=== PATIENT | female | born 1955 | race Caucasian/White ===

== ENCOUNTER 2022-09-17 12:48 | Inpatient (IN) | payer MEDICARE, OTHER ==
[2022-09-17] MEDS ORDERED: Sodium Chloride 0.9% 10 ML Syringe FLUSH PRN ×3 (13:18→17:12)
[2022-09-17] MEDS ORDERED: Sodium Chloride 0.9% 1,000 ML IV ONE (13:18)
[2022-09-17] MEDS ORDERED: Ondansetron 4 MG/2 ML SDV IVPUSH ONE (13:18)
[2022-09-17] MEDS ORDERED: Dicyclomine 10 MG Cap PO ONE (13:19)
[2022-09-17] MEDS ORDERED: Iopamidol 612 MG/ML 100 ML Bottle IVPUSH ONE (13:37)
[2022-09-17] MEDS ORDERED: cefTRIAXone 2 GM in Sodium Chloride 0.9% 100 ML IV ONE (16:54)
[2022-09-17] MEDS ORDERED: Acetaminophen 325 MG Tab PO PRN (17:12)
[2022-09-17] MEDS ORDERED: Ondansetron 4 MG Tab.DIS PO PRN (17:12)
[2022-09-17] MEDS ORDERED: Ondansetron 4 MG/2 ML SDV IV PRN (17:12)
[2022-09-17] MEDS ORDERED: Heparin Sodium 5,000 Units/ML Vial SUBCUT SCH (17:15)
[2022-09-17] MEDS: Lactated Ringers 1,000 ML IV SCH (18:53)
[2022-09-17] MEDS: Heparin Sodium 5,000 Units/ML Vial SUBCUT SCH (19:49)
[2022-09-18] MEDS: Heparin Sodium 5,000 Units/ML Vial SUBCUT SCH ×2 (03:38→12:45)
[2022-09-18] MEDS: Lactated Ringers 1,000 ML IV SCH (03:38)
== END 2022-09-18 13:18 | disposition home or self-care (01) | DRG 872 ==
LOC: JD.ED 12:48 → JD.MS 17:12
PROVIDERS: ADMIT Hospitalist; ATTEND Hospitalist
DX: A41.9 Sepsis, unspecified organism (principal); N17.9 Acute kidney failure, unspecified; N30.01 Acute cystitis with hematuria; K52.9 Noninfective gastroenteritis and colitis, unspecified; H54.40 Blindness, one eye, unspecified eye; M54.9 Dorsalgia, unspecified; E86.0 Dehydration; G89.29 Other chronic pain; E03.9 Hypothyroidism, unspecified; D64.9 Anemia, unspecified; Z96.659 Presence of unspecified artificial knee joint; Z98.49 Cataract extraction status, unspecified eye; Z86.010 Personal history of colon polyps; Z98.890 Other specified postprocedural states; Z85.038 Personal history of other malignant neoplasm of large intestine; Z90.49 Acquired absence of other specified parts of digestive tract; Z93.2 Ileostomy status; Z79.890 Hormone replacement therapy; Z79.899 Other long term (current) drug therapy; Z88.8 Allergy status to other drugs, medicaments and biological substances
CPT/HCPCS: 36415; 74177; 74177-26; 80048; 80053; 81001; 83605; 83690; 83735; 85025; 86140; 87040; 96361; 96374; 99223; 99239; 99284; 99285-25; A9270-GY; J0696; J1644; J2405; J3490; J7030; J7120; Q9967